=== PATIENT | male | born 1955 | race Caucasian/White ===

== ENCOUNTER 2022-12-16 03:02 | Emergency (ER) | payer MEDICARE, SELFPAY ==
[2022-12-16 03:21] VITALS: BP 183/110; PULSE 90; RESP 16; TEMP 36.7; O2SAT 95; BMI 37.3
--- NOTE | 2022-12-16 03:50 | ED_ITS ---
HPI - Wound/Laceration General Chief Complaint: Wound/Laceration Stated Complaint: fell/ laceration to forehead Time Seen by Provider: 12/16/22 03:50 Source: patient Mode of arrival: Ambulatory Limitations: no limitations History of Present Illness HPI narrative: Patient is a 67-year-old male. Not on anticoagulation. Here for evaluation of injuries that he sustained when he tripped in the travel trailer that he is staying in. He fell forward and hit his head. Caused abrasions on both of his shins. He did not lose consciousness. Does have some left shoulder discomfort. Covered with a bandage prior to coming in. No hip pain. Has been ambulatory. No arm pain. No neck pain. No chest pain. Does have some blurry vision in his left eye but otherwise no vision changes. No loose teeth or missing teeth. No problems breathing. Review of Systems Review of Systems ROS Unobtainable: All systems reviewed & are unremarkable except as noted in HPI and below Patient History Social History Smoking Status: Never smoker Smoking Status: Never smoker Substance Use Type: does not use Exam Initial Vital Signs Initial Vital Signs: Vital Signs Temperature 98.1 F 12/16/22 03:21 Pulse Rate 90 12/16/22 03:21 Respiratory Rate 16 12/16/22 03:21 Blood Pressure 183/110 H 12/16/22 03:21 Pulse Oximetry 95 12/16/22 03:21 Oxygen Delivery Method Room Air 12/16/22 03:21 Const General: well developed and No ill appearing HENMT Head: abrasion and laceration Ears: hearing grossly normal bilaterally Nose: external nose normal, nares normal and No epistaxis Face and sinus: laceration and no maxillary instability Mouth: oral mucosae normal Teeth and gingiva: dentition normal Eyes Eyelids: eyelids normal Cornea: corneas normal, corneas abnormal and fluorescein used Pupils: PERRL EOM: EOM intact bilaterally Chest Chest: No crepitus and No tenderness Resp Effort & Inspection: normal respiratory effort Cardio Rate: regular rate GI Inspection: normal to inspection Back/Spine/Pelvis Cervical Spine: No cervical spinal tenderness Skin Other: Abrasions to the distal 1/3 of bilateral shins. No active bleeding. Patient has a large? U? shaped flap laceration to the forehead. It is oozing. He is a smaller laceration under the left eye. It does not involve the eyelid. Neuro General: patient alert, patient awake, patient oriented x3 and moves all extremities Extrem General: normal to inspection Procedures Laceration Repair Laceration 1: Site: face (Under left eye) Side (If applicable): left Size (cm): 2 Description: linear Depth: simple, single layer Local Anesthetic: lidocaine 1% Amount of anesthesia used (mL): 3 Pre-repair: deep structures intact Skin layer closed with: other (Chromic) Skin layer suture size: 5-0 Number of sutures: 5 Technique: simple, interrupted Laceration 2: Site: other (Forehead) Size (cm): 8 Description: flap Depth: simple, single layer Local Anesthetic: lidocaine 1% and with epi Amount of anesthesia used (mL): 8 Pre-repair: wound explored and deep structures intact Skin layer closed with: nylon Skin layer suture size: 4-0 Number of sutures: 23 Technique: simple, interrupted Scores GCS Pro coma scale eye opening: Spontaneous [place] coma scale verbal response: Orientated Pro coma scale motor response: Obey commands [place] coma scale total score: 15 Nexus Score for C-Spine Focal Neurologic deficit present: No Midline spinal tenderness present: No Altered level of conciousness present: No Intoxication present: No Distracting Injury Present: No Nexus Criteria for C-spine: 0 Course Orders Ordered: Discontinued Medications Bacitracin (Bacitracin Oint 0.9 Gm Pckt) 1 applic TOP NOW ONE Stop: 12/16/22 03:52 Last Admin: 12/16/22 04:03 Dose: 1 applic Documented By: BERENICE Erythromycin (Erythromycin Ophth 1 Gm Oint) 1 applic EYE-LEFT NOW ONE Stop: 12/16/22 03:52 Last Admin: 12/16/22 04:04 Dose: 1 applic Documented By: BERENICE Fluorescein Sodium (Fluorescein 1 Mg Strip) 1 mg EYE-BOTH NOW ONE Stop: 12/16/22 03:52 Last Admin: 12/16/22 04:03 Dose: 1 mg Documented By: BERENICE Vital Signs Vital signs: Vital Signs - 8 hr 12/16/22 03:21 12/16/22 04:04 Temperature 98.1 F Pulse Rate 90 91 H Respiratory Rate 16 16 Blood Pressure 183/110 H 155/95 H Pulse Oximetry 95 94 Oxygen Delivery Method Room Air Room Air MDM - Wound/Laceration MDM Narrative Medical decision making narrative: This was a mechanical fall. The lacerations on his face were closed as described above. His left eye appears uninjured. Low suspicion for open globe. Extraocular muscles are intact. The laceration under his eye does not involve his eyelid. No foreign body noted. No corneal abrasions. He is abrasions on his shins. Neck was cleared by nexus criteria. He reports no other injuries from the event. Patient was given care instructions and return precautions. He expressed understanding and agreement. Discharge Plan Departure Patient Disposition: Home Clinical Impression: Laceration of forehead, Laceration of face, Contusion of eye, left, Abrasion of skin Instructions: DI for Eye Contusion, DI for Laceration Repair Activity Restrictions/Additional Instructions: The stitches in your forehead are not absorbable. They do need to be removed in the next 7-10 days. Either your primary doctor or the walk-in clinic can do this. The stitches under your left eye are absorbable and should come out on their own. You are going to have a black eye that is potentially worse tomorrow than which you have currently. I do recommend you keep ice over the area. You can put topical antibiotic ointment over the cuts to your forehead and under your eye and also the abrasions on your legs. After 24 hours you can shower like normal. You can use soap and water and shampoo like normal. Return to the emergency department for new or worsening symptoms. Referrals: Jesus Alberto Webb MD [Primary Care Provider] - Stand Alone Forms: Patient Portal/API
[2022-12-16] MEDS: FLUORESCEIN 1 MG STRIP EYE-BOTH (04:03)
[2022-12-16] MEDS: BACITRACIN OINT 0.9 GM PCKT 1 APPLIC TOP (04:03)
[2022-12-16 04:04] VITALS: BP 155/95; PULSE 91; RESP 16; O2SAT 94
[2022-12-16] MEDS: ERYTHROMYCIN OPHTH 1 GM OINT 1 APPLIC EYE-LEFT (04:04)
== END 2022-12-16 04:10 | disposition home or self-care (01) ==
PROVIDERS: Emergency Provider Emergency Medicine; PCP Family Medicine
DX: S01.81XA Laceration without foreign body of other part of head, initial encounter (principal); S00.12XA Contusion of left eyelid and periocular area, initial encounter; M25.512 Pain in left shoulder; H53.9 Unspecified visual disturbance; W18.30XA Fall on same level, unspecified, initial encounter
CPT/HCPCS: 12004; 99283